=== PATIENT | male | born 1970 | race Caucasian/White ===

== ENCOUNTER 2018-05-12 16:40 | Emergency (ER) | payer BC ==
[2018-05-12] MEDS ORDERED: Lidocaine 1% 20 ML MDV ONE (17:02)
[2018-05-12] MEDS ORDERED: Triple Antibiotic Oint 1 GM Packet ONE (17:44)
[2018-05-12] MEDS ORDERED: Sulfameth/Trimethoprim DS 800-160mg TAB ONE (17:44)
== END 2018-05-12 17:53 | disposition home or self-care (01) ==
LOC: BURERS 16:40
DX: L03.011 Cellulitis of right finger (principal); L03.114 Cellulitis of left upper limb; I10 Essential (primary) hypertension; F17.220 Nicotine dependence, chewing tobacco, uncomplicated; Z79.899 Other long term (current) drug therapy
CPT/HCPCS: 26010; 87070; 87077; 87205; J2001